=== PATIENT | female | born 1995 | race African-American/Black ===

== ENCOUNTER 2018-05-05 05:14 | Emergency (ER) | payer OTHER ==
[2018-05-05] MEDS ORDERED: NS 0.9% 1000 ML* 1,000 ML IV ONE (05:45)
[2018-05-05] MEDS ORDERED: Ondansetron INJ* 2 MG/ML VIAL IV ONE (05:45)
[2018-05-05 06:19] LABS: ABS Basophils 0 10^3/ul (0-0.2); ABS Eosinophils 0.1 10^3/ul (0-0.6); ABS Lymphocytes 0.7 10^3/ul (1.0-4.8); ABS Monocytes 0.6 10^3/ul (0-0.8); ABS Neutrophils 9.3 10^3/ul (1.5-7.7); ABS Nucleated RBC 0 10^3/ul; Eosinophil % 0.5 %; Hematocrit 39 % (35-47); Hemoglobin 13.5 g/dl (12.0-16.0); Lymphocyte % 6.7 %; Mean Corpuscular HGB Conc 35 g/dl (31-36); Mean Corpuscular Hemoglobin 31 pg (27-31); Mean Corpuscular Volume 90 fL (80-97); Mean Platelet Volume 6.8 fL (7.4-10.4); Nucleated Red Blood Cells % 0; Platelet Count 312 10^3/ul (150-450); Red Blood Count 4.33 10^6/ul (4.00-5.40); Red Cell Distribution Width 12 % (10.5-15); White Blood Count 10.7 10^3/ul (3.5-10.8)
[2018-05-05 06:31] LABS: Albumin 4.1 g/dL (3.2-5.2); Albumin/Globulin Ratio 1.5 (1-3); BUN/Creatinine Ratio 18.5 (8-20); EGFR Non-African American 87.6 (>60); Globulin 2.7 g/dL (2-4); Magnesium 1.7 mg/dL (1.9-2.7); Potassium 3.9 mmol/L (3.5-5.0); Total Bilirubin 0.7 mg/dL (0.2-1.0); Total Protein 6.8 g/dL (6.4-8.9)
[2018-05-05 06:51] LABS: Urine Appearance Cloudy; Urine Bacteria Absent (Absent); Urine Bilirubin Negative (Negative); Urine Blood Negative (Negative); Urine Color Amber; Urine Glucose Negative (Negative); Urine Ketones Negative (Negative); Urine Nitrite Negative (Negative); Urine Protein Negative (Negative); Urine Red Blood Cell Trace(0-2/hpf) (Absent); Urine Specific Gravity 1.029 (1.010-1.030); Urine Urobilinogen Negative (Negative); Urine White Blood Cell 2+(11-20/hpf) (Absent)
[2018-05-05] MEDS ORDERED: Acetaminophen TAB* 325 MG PO ONE (07:39)
--- NOTE | 2018-05-05 08:20 | ED ---
Back Pain - HPI Summary HPI Summary: Patient is a 22-year-old 9 week female presenting to the ED with bilateral upper and lower back pain diffusely throughout without trauma or other injury. Patient denies abdominal pain or vaginal bleeding or discharge. Also is endorsing some pain to the left shoulder with intermittent numbness and tingling radiating down to the hand which has been present times several weeks. She is also complaining of diffuse shakiness over the past several years. Also endorsing 2 day history of nausea, vomiting, diarrhea which she states is not her normal morning sickness nausea, vomiting. She denies any fevers, sweats , chills. She states she continues to eat and drink well. She has not had an ultrasound for this . Denies any bladder or bowel dysfunction. Denies any numbness or tingling to the bilateral lower extremities. Continues to be able to ambulate well. - History of Current Complaint Chief Complaint: EDAbdPain Stated Complaint: VOMITING Time Seen by Provider: 05/05/18 05:29 Hx Obtained From: Patient Onset/Duration: Sudden Onset Onset/Duration: Started Hours Ago Timing: Constant Back Pain Location: Is Diffuse - diffuse over back Pain Intensity: 10 Pain Scale Used: 0-10 Numeric Character: Aching Aggravating Symptom(s): Movement, Lifting, Bending Alleviating Symptom(s): Rest, Position, Heat Associated Signs And Symptoms: Negative: Swelling, Redness, Bruising, Weakness, Numbness, Abdominal Pain, Bladder Incontinence, Bowel Incontinence - Risk Factors AAA Risk Factors: Negative TAD Risk Factors: Negative Cauda Equina Risk Factors: Negative Epidural Abscess Risk Factors: Negative - Allergies/Home Medications Allergies/Adverse Reactions: Allergies Allergy/AdvReac Type Severity Reaction Status Date / Time No Known Allergies Allergy Verified 05/05/18 05:20 PMH/Surg Hx/FS Hx/Imm Hx Previously Healthy: Yes - Immunization History Hx Pertussis Vaccination: No Immunizations Up to Date: Yes Infectious Disease History: No Infectious Disease History: Denies: Traveled Outside the [place] in Last 30 Days - Social History Occupation: Unemployed Lives: Alone Alcohol Use: None Hx Substance Use: No Substance Use Type: Reports: None Hx Tobacco Use: No Smoking Status (MU): Never Smoked Tobacco Review of Systems Constitutional: Negative Negative: Fever, Chills, Fatigue, Skin Diaphoresis Negative: Palpitations, Chest Pain Negative: Shortness Of Breath, Cough Genitourinary: Negative Positive: no symptoms reported, see HPI Positive: Arthralgia - back pain. Negative: Myalgia Skin: Negative Neurological: Negative All Other Systems Reviewed And Are Negative: Yes Physical Exam Triage Information Reviewed: Yes Vital Signs On Initial Exam: Initial Vitals Temp Pulse Resp BP Pulse Ox 98.1 F 104 16 131/86 97 05/05/18 05:19 05/05/18 05:19 05/05/18 05:19 05/05/18 05:19 05/05/18 05:19 Vital Signs Reviewed: Yes Appearance: Positive: Well-Appearing, Well-Nourished Skin: Positive: Skin Color Reflects Adequate Perfusion Head/Face: Positive: Normal Head/Face Inspection Eyes: Positive: EOMI, AUGUSTINA, Conjunctiva Clear Neck: Positive: Supple, No Lymphadenopathy Respiratory/Lung Sounds: Positive: Clear to Auscultation, Breath Sounds Present Cardiovascular: Positive: RRR, Pulses are Symmetrical in both Upper and Lower Extremities Abdomen Description: Positive: Nontender, Soft Musculoskeletal: Positive: Pain @ - diffusely throughout back - no step off Neurological: Positive: Sensory/Motor Intact, Speech Normal Psychiatric: Positive: Affect/Mood Appropriate AVPU Assessment: Alert Diagnostics - Vital Signs Vital Signs Temp Pulse Resp BP Pulse Ox 05/05/18 07:51 86 110/64 97 05/05/18 07:21 85 105/56 98 05/05/18 07:00 79 99 05/05/18 06:51 85 98/75 96 05/05/18 06:22 97 96 05/05/18 06:21 95 117/74 96 05/05/18 05:19 98.1 F 104 16 131/86 97 - Laboratory Lab Results: Lab Results 05/05/18 05/05/18 05/05/18 Range/Units 05:45 05:45 06:31 WBC 10.7 (3.5-10.8) 10^3/ul RBC 4.33 (4.00-5.40) 10^6/ul Hgb 13.5 (12.0-16.0) g/dl Hct 39 (35-47) % MCV 90 (80-97) fL MCH 31 (27-31) pg MCHC 35 (31-36) g/dl RDW 12 (10.5-15) % Plt Count 312 (150-450) 10^3/ul MPV 6.8 L (7.4-10.4) fL Neut % (Auto) 87.2 % Lymph % (Auto) 6.7 % [place] % (Auto) 5.4 % Eos % (Auto) 0.5 % Baso % (Auto) 0.2 % Absolute Neuts (auto) 9.3 H (1.5-7.7) 10^3/ul Absolute Lymphs (auto) 0.7 L (1.0-4.8) 10^3/ul Absolute Monos (auto) 0.6 (0-0.8) 10^3/ul Absolute Eos (auto) 0.1 (0-0.6) 10^3/ul Absolute Basos (auto) 0 (0-0.2) 10^3/ul Absolute Nucleated RBC 0 10^3/ul Nucleated RBC % 0 Sodium 134 L (135-145) mmol/L Potassium 3.9 (3.5-5.0) mmol/L Chloride 103 (101-111) mmol/L Carbon Dioxide 21 L (22-32) mmol/L Anion Gap 10 (2-11) mmol/L BUN 15 (6-24) mg/dL Creatinine 0.81 (0.51-0.95) mg/dL Est GFR ( Amer) 106.0 (>60) Est GFR (Non-Af Amer) 87.6 (>60) BUN/Creatinine Ratio 18.5 (8-20) Glucose 111 H (70-100) mg/dL Calcium 9.0 (8.6-10.3) mg/dL Magnesium 1.7 L (1.9-2.7) mg/dL Total Bilirubin 0.70 (0.2-1.0) mg/dL AST 26 (13-39) U/L ALT 43 (7-52) U/L Alkaline Phosphatase 50 (34-104) U/L Troponin I 0.00 (<0.04) ng/mL Total Protein 6.8 (6.4-8.9) g/dL Albumin 4.1 (3.2-5.2) g/dL Globulin 2.7 (2-4) g/dL Albumin/Globulin Ratio 1.5 (1-3) Beta HCG, Quant 982478.00 mIU/mL Urine Color Jeanette Urine Appearance Cloudy Urine pH 5.0 (5-9) Ur Specific [place] 1.029 (1.010-1.030) Urine Protein Negative (Negative) Urine Ketones Negative (Negative) Urine Blood Negative (Negative) Urine Nitrate Negative (Negative) Urine Bilirubin Negative (Negative) Urine Urobilinogen Negative (Negative) Ur Leukocyte Esterase 1+ A (Negative) Urine WBC (Auto) 2+(11-20/hpf) A (Absent) Urine RBC (Auto) Trace(0-2/hpf) (Absent) Ur Squamous Epith Cells Present A (Absent) Urine Bacteria Absent (Absent) Urine Glucose Negative (Negative) Urine Ascorbic Acid * A (Negative) Result Diagrams: 05/05/18 05:45 05/05/18 05:45 Lab Statement: Any lab studies that have been ordered have been reviewed, and results considered in the medical decision making process. Back Pain Course/Dx - Course Course Of Treatment: During the course treatment, the patient is evaluated for multiple complaints. She endorses shakiness over the past several years, which is intermittent and not worse or better during a specific time a day. I've advised she follow up with her PCP regarding this. I have addressed her complaint of nausea, vomiting, diarrhea and left shoulder pain which radiates to the hand with intermittent numbness and tingling over the past few weeks. Magnesium is WNL. Other labs obtained and are all WNL including an hCG which is consistent with a 9 week . She endorses diffuse back pain which is also common in , no lesions, ecchymosis or signs of trauma. No pain directly to the spine and no step-off noted on physical exam. Patient is given Tylenol and moist heat pads. She is also given Zofran and 1 L fluids with good relief. She will follow-up with her COIN BOX INSPECTOR as well as her PCP. As patient is not complaining of abdominal pain, vaginal bleeding or vaginal discharge, ultrasound is not obtained at this time. Reglan prescribed. Patient is feeling much improved and would like to be discharged home. She is ambulating well. Unable to give stool sample. UA obtained with 1+ leukocytes. Will not treat at this time. - Diagnoses Differential Diagnosis/HQI/PQRI: Positive: Herniated Disc, Strain, Sprain Provider Diagnoses: Back pain Discharge - Sign-Out/Discharge Documenting (check all that apply): Patient Departure - Discharge Plan Condition: Stable Disposition: HOME Prescriptions: Metoclopramide TAB* [Reglan TAB*] 10 mg PO Q6H #15 tab MDD 4 Patient Education Materials: Nausea and Vomiting in (ED), Back Pain ( ED) Referrals: Julieta Doty MD [Primary Care Provider] - Additional Instructions: Moist heat to the back Tylenol 650mg three times daily Reglan up to four times daily as needed for nausea - Billing Disposition and Condition Condition: STABLE Disposition: Home
[2018-05-05 10:30] VITALS: BP 99/55
== END 2018-05-05 10:30 | disposition home or self-care (01) ==
LOC: ED 05:14
DX: O26.891 Other specified pregnancy related conditions, first trimester (principal); M54.6 Pain in thoracic spine; M54.5 Low back pain; Z3A.09 9 weeks gestation of pregnancy
CPT/HCPCS: 36415; 80053; 81003; 81015; 83735; 84484; 84702; 85025; 87086; 96374; 99283; A9270-GY; J2405

== ENCOUNTER → 2018-08-17 15:29 | Emergency (ER) | payer OTHER ==
[~2018-08-17 15:29] MED LIST: Amoxicillin PO (*) 500 MG CAP PO ONE
[2018-08-17 18:44] LABS: Hematocrit 35 % (33-41); Hemoglobin 12.1 g/dL (12.0-16.0); Mean Corpuscular HGB Conc 34 g/dL (31-36); Mean Corpuscular Hemoglobin 31 pg (27-31); Mean Corpuscular Volume 90 fL (80-97); Mean Platelet Volume 6.7 fL (7.4-10.4); Platelet Count 315 10^3/uL (150-450); Red Blood Count 3.92 10^6 /uL (3.70-4.87); Red Cell Distribution Width 13 % (10.5-15); White Blood Count 9.8 10^3/uL (3.5-10.8)
[2018-08-17 19:02] LABS: BUN/Creatinine Ratio 10.4 (8-20); Calcium 9.3 mg/dL (8.6-10.3); EGFR African American 130.8 (>60); EGFR Non-African American 108.1 (>60); Potassium 3.8 mmol/L (3.5-5.0)
--- NOTE | 2018-08-17 20:27 | ED ---
Abdominal Pain/Female - HPI Summary HPI Summary: Pt is a 23 y/o female who presents to the ED c/o abdominal pain. 2 days ago she began having suprapubic abdominal pressure and cramping. Pt denies any dysuria, hematuria, vaginal bleeding, or vaginal discharge. Her pain is currently rated a 9/10 in severity. She is currently 24 weeks , A1. All prior births have been vaginal without complications. Pt was seen today by her client support professional but did not discuss her abdominal pain. She feels the baby moving. - History of Current Complaint Chief Complaint: EDAbdPain Stated Complaint: VAGINAL PAIN PER PT Time Seen by Provider: 08/17/18 19:49 Hx Obtained From: Patient Onset/Duration: Gradual Onset, Lasting Days - 2, Still Present Timing: Constant Severity Currently: Severe Pain Intensity: 9 Pain Scale Used: 0-10 Numeric Location: Suprapubic Character: Cramping, Other: - pressure Associated Signs and Symptoms: Negative: Urinary Symptoms, Vaginal Bleeding, Vaginal Discharge Allergies/Adverse Reactions: Allergies Allergy/AdvReac Type Severity Reaction Status Date / Time No Known Allergies Allergy Verified 05/05/18 05:20 Home Medications: Home Medications Vitamin TAB* 1 tab PO DAILY 08/17/18 [History Confirmed 08/17/18] raNITIdine HCl [Zantac 150 Maximum Streng] 150 mg PO BID 08/17/18 [History Confirmed 08/17/18] PMH/Surg Hx/FS Hx/Imm Hx Previously Healthy: Yes Endocrine/Hematology History: Denies: Hx Diabetes Cardiovascular History: Denies: Hx Hypertension Infectious Disease History: No Infectious Disease History: Denies: Traveled Outside the [place] in Last 30 Days - Family History Known Family History: Negative: Blood Disorder - Social History Alcohol Use: None Hx Substance Use: No Substance Use Type: Reports: None Hx Tobacco Use: No Smoking Status (MU): Never Smoked Tobacco Review of Systems Positive: Abdominal Pain Negative: dysuria, hematuria, other - vaginal bleeding or discharge All Other Systems Reviewed And Are Negative: Yes Physical Exam - Summary Physical Exam Summary: VITAL SIGNS: Reviewed. GENERAL: Patient is a well-developed and nourished FEMALE who is lying comfortable in the stretcher. Patient is not in any acute respiratory distress. HEAD AND FACE: No signs of trauma. No ecchymosis, hematomas or skull depressions. No sinus tenderness. EYES: PERRLA, EOMI x 2, No injected conjunctiva, no nystagmus. EARS: Hearing grossly intact. Ear canals and tympanic membranes are within normal limits. MOUTH: Oropharynx within normal limits. NECK: Supple, trachea is midline, no adenopathy, no JVD, no carotid bruit, no c- spine tenderness, neck with full ROM. CHEST: Symmetric, no tenderness at palpation LUNGS: Clear to auscultation bilaterally. No wheezing or crackles. CVS: Regular rate and rhythm, S1 and S2 present, no murmurs or gallops appreciated. ABDOMEN: Soft. Mild suprapubic tenderness. No signs of distention. No rebound no guarding, and no masses palpated. Bowel sounds are normal. EXTREMITIES: FROM in all major joints, no edema, no cyanosis or clubbing. NEURO: Alert and oriented x 3. No acute neurological deficits. Speech is normal and follows commands. SKIN: Dry and warm Triage Information Reviewed: Yes Vital Signs On Initial Exam: Initial Vitals Temp Pulse Resp BP Pulse Ox 98.2 F 92 16 128/72 97 08/17/18 16:01 08/17/18 16:01 08/17/18 16:01 08/17/18 16:01 08/17/18 16:01 Vital Signs Reviewed: Yes Diagnostics - Vital Signs Vital Signs Temp Pulse Resp BP Pulse Ox 08/17/18 19:28 97.4 F 95 16 107/91 98 08/17/18 17:00 98.2 F 86 16 125/69 98 08/17/18 16:01 98.2 F 92 16 128/72 97 - Laboratory Lab Results: Lab Results 08/17/18 08/17/18 Range/Units 18:34 18:34 WBC 9.8 (3.5-10.8) 10^3/uL RBC 3.92 (3.70-4.87) 10^6 /uL Hgb 12.1 (12.0-16.0) g/dL Hct 35 (33-41) % MCV 90 (80-97) fL MCH 31 (27-31) pg MCHC 34 (31-36) g/dL RDW 13 (10.5-15) % Plt Count 315 (150-450) 10^3/uL MPV 6.7 L (7.4-10.4) fL Sodium 136 (135-145) mmol/L Potassium 3.8 (3.5-5.0) mmol/L Chloride 105 (101-111) mmol/L Carbon Dioxide 24 (22-32) mmol/L Anion Gap 7 (2-11) mmol/L BUN 7 (6-24) mg/dL Creatinine 0.67 (0.51-0.95) mg/dL Est GFR ( Amer) 130.8 (>60) Est GFR (Non-Af Amer) 108.1 (>60) BUN/Creatinine Ratio 10.4 (8-20) Glucose 86 (70-100) mg/dL Calcium 9.3 (8.6-10.3) mg/dL Result Diagrams: 08/17/18 18:34 08/17/18 18:34 Lab Statement: Any lab studies that have been ordered have been reviewed, and results considered in the medical decision making process. - Ultrasound No standard instances Ultrasound Interpretation Completed By: Radiologist Summary of Ultrasound Findings: US: Normal intrauterine with estimated gestational age of 23 weeks and 4 days. ED physician reviewed radiology report. Abdominal Pain Fem Course/Dx - Course Course Of Treatment: Pt is a 23 y/o female who presents to the ED c/o suprapubic abdominal pain. She is currently 24 weeks . A physical exam revealed mild suprapubic tenderness. A US revealed normal intrauterine with estimated gestational age of 23 weeks and 4 days. Bloodwork without abnormalities. A UA revealed positive leukocyte esterase, RBC, and squamous epithelial cells. In the course she was given Amoxicillin. She will be discharged with a final dx of UTI, and a prescription for Amoxicillin. Pt is agreeable with this plan. - Diagnoses Provider Diagnoses: UTI (urinary tract infection) Discharge - Sign-Out/Discharge Documenting (check all that apply): Patient Departure - Discharge Patient Received Moderate/Deep Sedation with Procedure: No - Discharge Plan Condition: Stable Disposition: HOME Prescriptions: Amoxicillin PO (*) [Amoxicillin 500 MG CAP*] 500 mg PO Q6H #30 cap Patient Education Materials: Urinary Tract Infection in (ED) Referrals: Julieta Doty MD [Primary Care Provider] - (2-3 days) Additional Instructions: PLEASE RETURN TO THE ED IMMEDIATELY FOR WORSENING OR CONCERNING SYMPTOMS. - Attestation Statements Document Initiated by Scribe: Yes Documenting Scribe: Nu Kohler Provider For Whom Scribe is Documenting (Include Credential): Chery Fonseca MD Scribe Attestation: INu, scribed for Chery Fonseca MD on 08/17/18 at 2056. Status of Scribe Document: Ready
[2018-08-17 20:48] LABS: Urine Appearance Cloudy; Urine Bacteria Absent (Absent); Urine Bilirubin Negative (Negative); Urine Blood Negative (Negative); Urine Color Yellow; Urine Glucose Negative (Negative); Urine Ketones Negative (Negative); Urine Nitrite Negative (Negative); Urine Protein Negative (Negative); Urine Red Blood Cell 2+(6-10/hpf) (Absent); Urine Specific Gravity 1.012 (1.010-1.030); Urine Squamous Epithelial Cell Present (Absent); Urine Urobilinogen Negative (Negative); Urine White Blood Cell Trace(0-5/hpf) (Absent)
[2018-08-17 21:06] VITALS: BP 107/79
== END | disposition home or self-care (01) ==
LOC: ED 15:29
DX: N39.0 Urinary tract infection, site not specified (principal)
CPT/HCPCS: 36415; 76815; 80048; 81003; 81015; 85027; 87086; 99283; A9270-GY

== ENCOUNTER 2018-10-13 19:45 | Emergency (ER) | payer OTHER ==
--- NOTE | 2018-10-13 21:35 | ED ---
GI/ HPI - HPI Summary HPI Summary: A 23 y/o F presents to ED c/o rectal bleeding with bowel movement today at 1830. Patient is 32-weeks , due Dec 07, and has been receiving pre-jemma care and ultrasounds with Dr. Chen, OB. This is her second . Her first was without complication. She has had contraction-like pain for the past 4 days, and her OB is aware. She also c/o stomach aches. Denies bowel changes , rectal pain. She is feeling the baby move. PMHx: gestational DM. Denies PMHx: Crohns, colitis. Patient is afebrile in ED. - History of Current Complaint Chief Complaint: EDAbdPain Time Seen by Provider: 10/13/18 21:26 Stated Complaint: BLOOD IN STOOL PER PT Hx Obtained From: Patient Onset/Duration: Started Hours Ago - approx 1830, Resolved Timing: Intermittent Current Severity: Severe Pain Intensity: 10 - out of 10 Associated Signs and Symptoms: Positive: External Hemorrhoid, Abdominal Pain. Negative: Rectal Pain, Constipation, Diarrhea Additional Signs & Symptoms: Positive: - Allergy/Home Medications Allergies/Adverse Reactions: Allergies Allergy/AdvReac Type Severity Reaction Status Date / Time No Known Allergies Allergy Verified 10/13/18 19:52 PMH/Surg Hx/FS Hx/Imm Hx Previously Healthy: Yes Endocrine/Hematology History: Denies: Hx Diabetes Cardiovascular History: Denies: Hx Hypertension GI History: Reports: Other GI Disorders - neg: colitis Denies: Hx Crohn's Disease Infectious Disease History: No Infectious Disease History: Denies: Traveled Outside the [place] in Last 30 Days - Family History Known Family History: Negative: Blood Disorder - Social History Occupation: Employed Part-time Lives: With Family Alcohol Use: None Hx Substance Use: No Substance Use Type: Reports: None Hx Tobacco Use: No Smoking Status (MU): Never Smoked Tobacco Have You Smoked in the Last Year: No Review of Systems Negative: Fever Positive: Abdominal Pain, Other - pos: rectal bleeding, gravid. neg: rectal pain. Negative: Diarrhea All Other Systems Reviewed And Are Negative: Yes Physical Exam - Summary Physical Exam Summary: Appearance: Well appearing, no pain distress, obese Skin: warm, dry, reflects adequate perfusion Head/face: normal Eyes: EOMI, AUGUSTINA ENT: mucous membranes moist Neck: supple, non-tender Respiratory: CTA, breath sounds present Cardiovascular: RRR, pulses symmetrical Abdomen: non-tender, soft, fundus is 7 cm below umbilicus Bowel Sounds: present Musculoskeletal: normal, strength/ROM intact Neuro: normal, sensory motor intact, A&Ox3 Lenore RN, present as coremaker experimental: : Bedside US shows 33 weeks by BPD. Vertex presentation. Placenta is low- lying. Rectal: inflamed hemorrhoid, no active bleeding, no gross blood, stool present. Digital exam: loose brown stool. Triage Information Reviewed: Yes Vital Signs On Initial Exam: Initial Vitals Temp Pulse Resp BP Pulse Ox 97.7 F 108 16 109/73 98 10/13/18 19:45 10/13/18 19:45 10/13/18 19:45 10/13/18 19:45 10/13/18 19:45 Vital Signs Reviewed: Yes Diagnostics - Vital Signs Vital Signs Temp Pulse Resp BP Pulse Ox 10/13/18 19:45 97.7 F 108 16 109/73 98 - Laboratory Lab Statement: Any lab studies that have been ordered have been reviewed, and results considered in the medical decision making process. GIGU Course/Dx - Course Course Of Treatment: Nurse's notes reviewed. Bedside ultrasound shows active fetus with heart tones 130s. Vertex presentation. The placenta is noted to be low as well. Patient is feeling the baby move and has no pain now. She was seen today by SNOW MAKER. I discussed the case with SNOW MAKER on-call who wishes to have the patient discharged to follow up in the office. Patient does report pains as what she calls Jose Srinivasan contractions. Her rectal bleeding appears to be from external hemorrhoid. There is no blood on rectal exam. - Diagnoses Differential Diagnoses - Female: Other - False labor, labor, rectal bleeding, hemorrhoids Provider Diagnoses: Abdominal pain during , External hemorrhoids - Physician Notifications Discussed Care Of Patient With: John Williamson - OB Time Discussed With Above Provider: 22:18 Instructed by Provider To: Other - Recommends discharge home and f/u in office. Discharge - Sign-Out/Discharge Documenting (check all that apply): Patient Departure - D/C Patient Received Moderate/Deep Sedation with Procedure: No - Discharge Plan Condition: Stable Disposition: HOME Prescriptions: Hydrocortisone SUPP* [Anusol HC Supp*] 25 mg NH BID PRN #10 supp PRN Reason: hemorrhoidal bleeding Patient Education Materials: Hemorrhoids (ED), Abdominal Pain in (ED) Referrals: Bob Chen MD [Medical Doctor] - Additional Instructions: Use apple juice or take a stool softener as needed for hard stools. Return with abdominal contractions, leaking of fluid, vaginal bleeding, increased abdominal pain, worse or other concerns. Follow-up with your SNOW MAKER on Tuesday. - Billing Disposition and Condition Condition: STABLE Disposition: Home - Attestation Statements Document Initiated by Scribe: Yes Documenting Scribe: Sita Palomo Provider For Whom Mushtaqibdion is Documenting (Include Credential): Dr. Miles Ambrose MD Scribe Attestation: Sita Yo scribed for Dr. Miles Ambrose MD on 10/14/18 at 0107. Scribe Documentation Reviewed: Yes Provider Attestation: The documentation as recorded by the Sita borges accurately reflects the service I personally performed and the decisions made by , Dr. Miles Ambrose MD Status of Scribe Document: Viewed
[2018-10-13 22:37] VITALS: BP 104/59
== END 2018-10-13 22:35 | disposition home or self-care (01) ==
LOC: ED 19:45
DX: R10.9 Unspecified abdominal pain (principal); K64.4 Residual hemorrhoidal skin tags; Z34.93 Encounter for supervision of normal pregnancy, unspecified, third trimester; Z3A.32 32 weeks gestation of pregnancy
CPT/HCPCS: 99283

== ENCOUNTER 2018-11-08 08:30 | Inpatient (IN) | payer OTHER ==
[2018-11-29] MEDS ORDERED: Buffered Lidocaine 1% SYRIN* 1 ML/SYRINGE INTRADERM ONE (16:54)
[2018-11-30] MEDS ORDERED: Buffered Lidocaine 1% SYRIN* 1 ML/SYRINGE INTRADERM ONE (05:53)
[2018-11-30] MEDS ORDERED: ceFOXitin 2 GM IVPREMIX* 2 GM/50 ML BAG IVPB ONE (05:53)
[2018-11-30] MEDS ORDERED: Lactated Ringers 1000 ML Bag* 1,000 ML IV ONE (05:53)
[2018-11-30] MEDS ORDERED: Sodium Citrate/Citric Acid* 15 ML UDC PO ONE (06:00)
[2018-11-30] MEDS ORDERED: Lactated Ringers 1000 ML Bag* 1,000 ML IV SCH ×3 (06:00→10:00)
--- NOTE | 2018-11-30 06:01 | HP ---
General Information - Reason for Visit at 39 weeks with Breech presentation admitted for delivery via Section - General Information Maternal Age: 23 Grav: 3 Para: 1 SAB: 1 IEA: 0 Estimated Due Date: 12/07/18 Determined By: LMP Maternal Blood Type and Rh: A Positive - Results this Serology/RPR Result: Non-Reactive Rubella Result: Immune HBsAg Result: Negative HIV Result: Negative GBS Culture Result: Positive Past Medical History Delivery History: See Records Pertinent Past Medical History: See Records Past Medical History Comment: Fibromyalgia Asthma Obesity BMI 46 Pertinent Past Surgical History: See Records Past Surgical History Comment: None Pertinent Family History: See Records - Antepartal Records Antepartal Records: Reviewed, Complicated by: - Obesity BMI 46, Gestational diabetes A1, Persisitent Breech presentation Review of Systems Constitutional: Comfortable CV Complaint: Yes Respiratory: Shortness of Breath: Yes Gastrointestinal: No Nausea/Vomiting, Normal Bowel Movement Genitourinary: No Dysuria, No Bleeding, No Leaking Fluid Musculoskeletal: No Complaint, No Epigastric Pain Neurological: No Headache, No Visual Changes Movement: Normal Exam Allergies/Adverse Reactions: Allergies No Known Allergies Allergy (Verified 11/28/18 15:37) Temp 98.7 BP 130/80 P 72 RR 20 - Measurements Height: 5 ft 5 in Weight: 301 lb Weight in lbs: 301.043612 Body Mass Index (BMI): 50.1 Pre- Weight: 254 lb Weight Gained This : 47 lbs and 0 ozs - Exam Breast: Breast Exam Deferred CVA: No CVA Tenderness Extremities: No Edema Heart: Normal Rhythm/Heart Sounds HEENT: No Significant Findings Lungs: Clear Bilaterally Rectal: Rectal Exam Deferred Reflexes: DTR 2+ Thyroid: No Thyromegaly - Abdominal Exam Abdomen Exam: Non-Tender, Fundal Height Consistent with Dates Targeted Exam Findings See L&D Outpatient Visit Provider Note for Findings: N/A Estimated Weight: 3700 gms Cervical Exam: Closed Effacement: Thick Station: -1 Presenting Part: Breech Membrane Status: Intact Bleeding/Discharge: None EFM Findings - External Monitor Findings Baseline Heart Rate: 150 - doppler only Contractions: None Assessment/Plan - Assessment at Term with Breech presentation, BMI 46, GDMA1 - Obstetrical Risk Factors Obstetrical Risk Factors: Obesity, Gestational Diabetes - Diet controlled, Breech - Plan Plan: IV Hydration, Antibiotic Prophylaxis, C/S Delivery - Date/Time of Admission Date of Admission: 11/30/18 Time of Admission: 07:00
[2018-11-30 07:40] LABS: Urine Benzodiazepine Screen None Detected (None Detect); Urine Opiates Screen None Detected (None Detect)
[2018-11-30] MEDS ORDERED: Morphine PF AMP (0.5MG/ML)* 5 MG/10 ML AMP ONE (07:58)
[2018-11-30] MEDS ORDERED: Lidocaine 0.5%* 50 ML SDV ONE (07:59)
[2018-11-30] MEDS ORDERED: OXYTOCIN* 10 UNITS/ML 1 ML VIAL ONE (08:11)
[2018-11-30] MEDS ORDERED: Ondansetron INJ* 2 MG/ML VIAL ONE (08:11)
[2018-11-30] MEDS ORDERED: Phenylephrine 40 MCG/ML SYRINGE ONE (08:11)
[2018-11-30] MEDS ORDERED: fentaNYL* 50 MCG/ML 2 ML VIAL (100 MCG VIAL) IV PRN (09:14)
[2018-11-30] MEDS ORDERED: Naloxone* 0.4 MG/ML 1 ML VIAL IV PRN ×2 (09:14→09:43)
[2018-11-30] MEDS ORDERED: Ondansetron INJ* 2 MG/ML VIAL IV PRN (09:43)
[2018-11-30] MEDS ORDERED: Naloxone* 2 MG in NS 0.9% 250 ML* 250 ML IV PRN (09:43)
[2018-11-30] MEDS ORDERED: oxyCODONE/Acetamin 5/325 MG* TAB PO PRN ×2 (09:43→09:48)
[2018-11-30] MEDS ORDERED: DiMENhydriNATE IV* 50 MG/ML VIAL IV PUSH PRN (09:43)
[2018-11-30] MEDS ORDERED: Nalbuphine* 10 MG/ML 1 ML VIAL IV PRN (09:43)
[2018-11-30] MEDS ORDERED: Glycerin ADULT SUPP PR PRN (09:48)
[2018-11-30] MEDS ORDERED: Witch Hazel PAD* JAR TOPICAL PRN (09:48)
[2018-11-30] MEDS ORDERED: Dibucaine 1% 28.35 GM TUBE PR PRN (09:48)
[2018-11-30] MEDS ORDERED: Zolpidem TAB* 5 MG PO PRN (09:48)
[2018-11-30] MEDS ORDERED: Tetan/Diph/Pertus SYR(Tdap)* 0.5 ML SYR(BOOSTRIX) use SYR IM ONE (09:48)
[2018-11-30] MEDS ORDERED: Nalbuphine* 10 MG/ML 1 ML VIAL ONE (10:18)
[2018-11-30] MEDS ORDERED: Ketorolac INJ* 30 MG/ML 1 ML VIAL ONE (11:05)
[2018-11-30] MEDS: Ketorolac INJ* 30 MG/ML 1 ML VIAL IV PRN ×2 (11:09→17:20)
[2018-11-30] MEDS: Simethicone TAB* 80 MG TAB.CHEW PO SCH ×3 (12:20→20:14)
[2018-11-30] MEDS ORDERED: oxyCODONE/Acetamin 5/325 MG* TAB ONE (13:38)
[2018-11-30] MEDS: Docusate CAP* 100 MG PO SCH ×2 (13:40→20:14)
--- NOTE | 2018-11-30 14:00 | OP ---
CC: Dr. Bhumi Alonso, [facility] * DATE OF OPERATION: 11/30/18 - ROOM #115 DATE OF : 89 SURGEON: Bob Chen MD. MICROSTRATEGY REPORTS DEVELOPER SURGEON: Dr. Bhumi Alonso. ANESTHESIA: Spinal. PRE-OP DIAGNOSES: at 39 weeks with breech presentation, gestational diabetes and obesity, BMI of 46. POST-OP DIAGNOSES: at 39 weeks with breech presentation, gestational diabetes and obesity, BMI of 46. OPERATIVE PROCEDURE: Primary low transverse section. ESTIMATED BLOOD LOSS: 600 cc. SPECIMEN SENT TO PATHOLOGY: Cord blood. FLUIDS: She received 3 L of IV crystalloid fluid. URINE OUTPUT: Her urine output was clear. FINDINGS: Upon delivery was that of a viable male infant in breech presentation with nuchal cord x3 over clear amniotic fluid with a weight of 7 pounds 15 ounces and Apgars of 8 and 9. The uterus, adnexa, bowel, and bladder were all within normal limits. The placenta was grossly intact with a three- vessel cord noted and there were no complications. DESCRIPTION OF PROCEDURE: The patient was taken to the operating room, where she was identified. She was placed on the operating table, where a spinal anesthetic was obtained without difficulty. She was then placed in the supine position with a leftward tilt, prepped and draped in normal sterile fashion. A Pfannenstiel skin incision was made with a knife and carried through to the underlying layer of fascia. The fascia was nicked in the midline and extended laterally with curved Singh scissors. The fascia was then grasped superiorly and inferiorly with Alexandro clamps and dissected off sharply from the recuts muscle. The rectus muscle was in the midline bluntly. The peritoneum was identified, grasped with pickups, and entered sharply with Metzenbaum scissors and the peritoneum was then extended superiorly and inferiorly sharply. Through this incision, a self- retaining retractor was introduced. A bladder flap was then created using Metzenbaum scissors and a low transverse uterine incision was made with a knife and extended laterally with bandage scissors. The infant's feet were then grasped and delivered through a breech extraction. Nuchal cord x3 was reduced immediately after delivery of the head. The cord was clamped and cut and the was handed off to awaiting service planner. Cord bloods were obtained. The placenta was removed manually. The uterus was then exteriorized and cleared of all clots and debris using moist laparotomy sponges. The uterine incision was then closed using 0- Polysorb suture in a running locked fashion with a second imbricating layer of 0- Polysorb suture with good hemostasis noted. The uterus was then returned to the patient's abdomen. The self-retaining retractor was then removed. The gutters were then cleared of all clot and debris using moist laparotomy sponges. All the sponges were removed from the patient's abdomen. The peritoneum was then closed using 3-0 Polysorb suture in a running fashion. The fascia was closed using 0-Polysorb suture in a running fashion and the Kim's layer was closed with 3-0 Vicryl sutures, interrupted stitches. The skin was closed with a 4-0 Monocryl subcuticular stitch. The patient tolerated the procedure well. Sponge, lap and needle counts were correct x2. She was then transferred to the recovery room area in stable condition. [id number]/[facility] #: [id number] AUGIE
[2018-11-30] MEDS ORDERED: NS 0.9% 500 ML* 500 ML IV ONE (21:39)
[2018-12-01] MEDS ORDERED: Acetaminophen TAB* 325 MG PO PRN (00:29)
[2018-12-01] MEDS ORDERED: oxyCODONE/Acetamin 5/325 MG* TAB PO PRN (00:29)
[2018-12-01] MEDS: Ketorolac INJ* 30 MG/ML 1 ML VIAL IV PRN (02:42)
[2018-12-01] MEDS ORDERED: Ferrous Gluconate TAB* 324 MG TAB PO SCH (09:00)
[2018-12-01] MEDS: Docusate CAP* 100 MG PO SCH ×3 (09:03→21:39)
[2018-12-01] MEDS: Simethicone TAB* 80 MG TAB.CHEW PO SCH ×4 (09:03→21:39)
[2018-12-01] MEDS: oxyCODONE/Acetamin 5/325 MG* TAB PO PRN ×2 (09:04→21:47)
[2018-12-01] MEDS: Ibuprofen TAB* 600 MG PO PRN ×2 (14:43→21:47)
--- NOTE | 2018-12-01 16:42 | PTEDU ---
Patient Name: JOEL NASCIMENTO JOEL NASCIMENTO selected video: Never Ever Shake a Baby to view on 12/01/2018 at 4:42:05 PM from [place] [id number]
[2018-12-01 18:07] LABS: ABS Basophils 0.1 10^3/ul (0-0.2); ABS Eosinophils 0.2 10^3/ul (0-0.6); ABS Lymphocytes 2.2 10^3/ul (1.0-4.8); ABS Monocytes 0.7 10^3/ul (0-0.8); ABS Neutrophils 7.5 10^3/ul (1.5-7.7); Eosinophil % 1.7 %; Hematocrit 35 % (35-47); Hemoglobin 11.7 g/dL (12.0-16.0); Lymphocyte % 20.2 %; Mean Corpuscular HGB Conc 33 g/dL (31-36); Mean Corpuscular Hemoglobin 30 pg (27-31); Mean Corpuscular Volume 91 fL (80-97); Mean Platelet Volume 6.9 fL (7.4-10.4); Nucleated Red Blood Cells % 0.1; Platelet Count 296 10^3/uL (150-450); Red Blood Count 3.89 10^6 /uL (3.70-4.87); Red Cell Distribution Width 14 % (10-15); White Blood Count 10.6 10^3/uL (3.5-10.8)
[2018-12-02] MEDS: oxyCODONE/Acetamin 5/325 MG* TAB PO PRN ×5 (05:12→21:51)
[2018-12-02] MEDS: Ibuprofen TAB* 600 MG PO PRN ×3 (05:13→17:43)
[2018-12-02] MEDS: Docusate CAP* 100 MG PO SCH ×3 (09:06→21:51)
[2018-12-02] MEDS: Simethicone TAB* 80 MG TAB.CHEW PO SCH ×4 (09:06→21:51)
[2018-12-03] MEDS: Ibuprofen TAB* 600 MG PO PRN ×3 (00:03→15:30)
[2018-12-03] MEDS: oxyCODONE/Acetamin 5/325 MG* TAB PO PRN ×3 (02:04→15:29)
[2018-12-03] MEDS: Docusate CAP* 100 MG PO SCH ×2 (09:47→15:29)
[2018-12-03] MEDS: Simethicone TAB* 80 MG TAB.CHEW PO SCH ×2 (09:48→15:30)
[2018-12-03 11:09] VITALS: BP 106/61
== END 2018-12-03 19:25 | disposition home or self-care (01) | DRG 540 ==
LOC: MCHNUR 11-30 06:10 → MCHOB 11-30 06:15
PROVIDERS: ADMIT Obstetrics & Gynecology; ATTEND Obstetrics & Gynecology
PROC: 10D00Z1 Extraction of Products of Conception, Low, Open Approach (ICD-10-PCS; principal; 2018-11-30 07:45)
DX: O32.1XX0 Maternal care for breech presentation, not applicable or unspecified (principal); O99.214 Obesity complicating childbirth; O24.420 Gestational diabetes mellitus in childbirth, diet controlled; O99.824 Streptococcus B carrier state complicating childbirth; O69.81X0 Labor and delivery complicated by cord around neck, without compression, not applicable or unspecified; J45.909 Unspecified asthma, uncomplicated; O99.52 Diseases of the respiratory system complicating childbirth; Z3A.39 39 weeks gestation of pregnancy; Z37.0 Single live birth
CPT/HCPCS: 36415; 80307; 85025; 90715; A9270-GY; J0694; J1885; J2300; J2405; J2590

== ENCOUNTER 2018-11-26 01:36 | Emergency (ER) | payer OTHER ==
--- NOTE | 2018-11-26 03:57 | UC ---
- HPI Summary HPI Summary: Patient is a 23 y/o F who is 38 weeks who presents to ED with complaints of bilateral breast pain. Pain is characterized as a burning sensation. Sx onset at 27 weeks. However, pain was minimal at the time and the patient was able to alleviate Sx by using a warm cloth. Pain progressively worsened. She denies fever and discharge. Dr. Chen is OBGYN. Brigitte is . On triage, pain is rated 10/10, nothing is noted to aggravate/alleviate Sx. Home medications and allergies are reviewed. - History of Current Complaint Hx Obtained From: Patient Breast Chief Complaint: Pain, Breast, Right Onset/Duration: Started Weeks Ago, Still Present, Worse Since Timing: Constant, Lasting Weeks Breast Pain Aggravating Factors: Nothing Breast Pain Alleviating Factors: Other: - warm cloth Breast Associated Signs/Symptoms: Negative - Allergy/Home Medications Allergies/Adverse Reactions: Allergies Allergy/AdvReac Type Severity Reaction Status Date / Time No Known Allergies Allergy Verified 11/26/18 01:57 Home Medications: Home Medications raNITIdine HCl [Zantac] 150 mg PO DAILY 11/26/18 [History Confirmed 11/26/18] PMH/Surg Hx/FS Hx/Imm Hx Endocrine History: Diabetes - gestational GI/ History: Other - UTI - Family History Known Family History: Negative: Blood Disorder - Social History Alcohol Use: None Substance Use Type: None Smoking Status (MU): Never Smoked Tobacco Have You Smoked in the Last Year: No Review of Systems All Other Systems Reviewed And Are Negative: Yes Constitutional: Negative: Fever Musculoskeletal: Positive: Other: - positive - bilateral breast pain, no discharge Physical Exam - Summary Physical Exam Summary: VITAL SIGNS: Reviewed. GENERAL: Patient is a well-developed and nourished female who is lying comfortable in the stretcher. Patient is not in any acute respiratory distress. HEAD AND FACE: No signs of trauma. No ecchymosis, hematomas or skull depressions. No sinus tenderness. EYES: PERRLA, EOMI x 2, No injected conjunctiva, no nystagmus. EARS: Hearing grossly intact. Ear canals and tympanic membranes are within normal limits. MOUTH: Oropharynx within normal limits. NECK: Supple, trachea is midline, no adenopathy, no JVD, no carotid bruit, no c- spine tenderness, neck with full ROM CHEST: Symmetric, no tenderness at palpation LUNGS: Clear to auscultation bilaterally. No wheezing or crackles. CVS: Regular rate and rhythm, S1 and S2 present, no murmurs or gallops appreciated. ABDOMEN: Soft, non-tender. No signs of distention. No rebound no guarding, and no masses palpated. Bowel sounds are normal. EXTREMITIES: FROM in all major joints, no edema, no cyanosis or clubbing. NEURO: Alert and oriented x 3. No acute neurological deficits. Speech is normal and follows commands. SKIN: Dry and warm Triage Information Reviewed: Yes Vital Signs: Initial Vital Signs Temp 97.1 F 11/26/18 01:53 Pulse 94 11/26/18 01:53 Resp 16 11/26/18 01:53 BP 129/75 11/26/18 01:53 Pulse Ox 98 11/26/18 01:53 Vital Signs Reviewed: Yes Breast Pain Course/Dx - Course Course Of Treatment: Patient is a 23 y/o F who is 38 weeks who presents to ED with complaints of bilateral breast pain. Pain is characterized as a burning sensation. Sx onset at 27 weeks. However, pain was minimal at the time and the patient was able to alleviate Sx by using a warm cloth. Pain progressively worsened. She denies fever and discharge. Dr. Chen is OBGYN. Brigitte is . Patient was given Percocet 5/325, 1 tab. Patient was discharged to home and advised to follow up with OBGYN. - Diagnoses Provider Diagnoses: Breast pain Discharge - Sign-Out/Discharge Documenting (check all that apply): Patient Departure - discharge Patient Received Moderate/Deep Sedation with Procedure: No - Discharge Plan Condition: Stable Disposition: HOME Patient Education Materials: Breast Self Exam for Women (ED) Referrals: Julieta Doty MD [Primary Care Provider] - 3 Days Bob Chen MD [Medical Doctor] - 3 Days Additional Instructions: RETURN TO ED FOR ANY NEW OR WORSENING SYMPTOMS. FOLLOW UP WITH YOUR PRIMARY CARE PHYSICIAN AND OBGYN WITHIN THREE DAYS. - Attestation Statements Document Initiated by Scribe: Yes Documenting Scribe: ROBBY KELLY Provider For Whom Scribe is Documenting (Include Credential): CHARLES BROWN MD Scribe Attestation: ROBBY Yo, scribed for CHARLES BROWN MD on 11/26/18 at 0635. Status of Scribe Document: Ready
[2018-11-26] MEDS ORDERED: oxyCODONE/Acetamin 5/325 MG* TAB PO ONE (03:58)
[2018-11-26 04:23] VITALS: BP 133/73
== END 2018-11-26 05:10 | disposition home or self-care (01) ==
LOC: ED 01:36
DX: N64.4 Mastodynia (principal); O24.419 Gestational diabetes mellitus in pregnancy, unspecified control; Z3A.38 38 weeks gestation of pregnancy
CPT/HCPCS: 99282; A9270-GY

== ENCOUNTER 2018-11-26 15:58 | Emergency (ER) | payer OTHER ==
[2018-11-26 18:34] LABS: ABS Eosinophils 0.1 10^3/ul (0-0.6); ABS Lymphocytes 2.2 10^3/ul (1.0-4.8); ABS Monocytes 0.8 10^3/ul (0-0.8); Eosinophil % 1.2 %; Hematocrit 36 % (35-47); Hemoglobin 12.1 g/dL (12.0-16.0); Lymphocyte % 21.5 %; Mean Corpuscular HGB Conc 34 g/dL (31-36); Mean Corpuscular Hemoglobin 30 pg (27-31); Mean Corpuscular Volume 90 fL (80-97); Mean Platelet Volume 6.7 fL (7.4-10.4); Platelet Count 321 10^3/uL (150-450); Red Blood Count 3.98 10^6 /uL (3.70-4.87); Red Cell Distribution Width 14 % (10-15)
[2018-11-26 18:52] LABS: Albumin 3.2 g/dL (3.2-5.2); Albumin/Globulin Ratio 1.1 (1-3); BUN/Creatinine Ratio 13.9 (8-20); C Reactive Protein 10.04 mg/L (<8.01); Calcium 8.8 mg/dL (8.6-10.3); EGFR African American 120.4 (>60); EGFR Non-African American 99.5 (>60); Globulin 2.9 g/dL (2-4); Potassium 3.8 mmol/L (3.5-5.0); Total Bilirubin 0.3 mg/dL (0.2-1.0); Total Protein 6.1 g/dL (6.4-8.9)
--- NOTE | 2018-11-26 20:10 | UC ---
- HPI Summary HPI Summary: 26-year-old female at 38 weeks presents with right breast pain for past couple weeks. She states that started as bilateral pain and then moved to the right. States she has not felt any lumps. She states that there are certain areas that been more painful than others on right breast. area is sensitive to touch. She denies any fevers. She is concerned that it is infected. No nipple discharge. No chest pain. No shortness of breath. No bowel pain. No contractions. No loss of fluids or vaginal bleeding. - Allergy/Home Medications Allergies/Adverse Reactions: Allergies Allergy/AdvReac Type Severity Reaction Status Date / Time No Known Allergies Allergy Verified 11/26/18 01:57 PMH/Surg Hx/FS Hx/Imm Hx Previously Healthy: Yes Endocrine History: Other - no DM Respiratory History: Other Other Respiratory History: no asthma - Family History Known Family History: Negative: Blood Disorder - Social History Alcohol Use: Occasionally Alcohol Amount: prior to pregancy Substance Use Type: None Smoking Status (MU): Former Smoker Have You Smoked in the Last Year: No Review of Systems All Other Systems Reviewed And Are Negative: Yes Constitutional: Negative: Negative Skin: Positive: Other - right side breast pain Physical Exam Triage Information Reviewed: Yes Appearance: Well-Appearing Vital Signs: Initial Vital Signs Temp 96.8 F 11/26/18 16:06 Pulse 105 11/26/18 16:06 Resp 17 11/26/18 16:06 BP 140/88 11/26/18 16:06 Pulse Ox 97 11/26/18 16:06 Vital Signs Reviewed: Yes ENT Exam: Normal Respiratory: Positive: Lungs clear, Normal breath sounds Cardiovascular: Positive: RRR Abdomen Description: Positive: Other: - baby felt above umbilicus Musculoskeletal Exam: Normal Neurological Exam: Normal Psychological Exam: Normal Skin: Positive: Other - tenderness LUQ and LLQ of right breast. Negative: Rashes Breast Pain Course/Dx - Course Course Of Treatment: 23-year-old female at 38 weeks presents with right breast pain for past couple weeks. She states that started as bilateral pain and then moved to the right. States she has not felt any lumps. She states that there are certain areas that been more painful than others on right breast. area is sensitive to touch. She denies any fevers. She is concerned that it is infected. No nipple discharge. No chest pain. No shortness of breath. No bowel pain. No contractions. No loss of fluids or vaginal bleeding. on exam tenderness right breast austin at 2 and 6 position. ultrasound no abscess. wbc normal. told place heat or ice and take tyenlol. told follow up with ob. patient understand and agrees with plan. - Differential Diagnoses Differential Diagnosis/HQI/PQRI: Breast Abscess, Breast Mass, Cystic Myalgia - Diagnoses Provider Diagnoses: Breast pain during Discharge - Sign-Out/Discharge Documenting (check all that apply): Patient Departure Patient Received Moderate/Deep Sedation with Procedure: No - Discharge Plan Condition: Good Disposition: HOME Referrals: Julieta Doty MD [Primary Care Provider] - Additional Instructions: follow up with ob Apply heat take tyenlol as needed for pain Return to ED if develop any new or worsening symptoms - Billing Disposition and Condition Condition: GOOD Disposition: Home
[2018-11-26 21:04] VITALS: BP 112/61
== END 2018-11-26 21:03 | disposition home or self-care (01) ==
LOC: ED 15:58
DX: O26.893 Other specified pregnancy related conditions, third trimester (principal); N64.4 Mastodynia; Z3A.38 38 weeks gestation of pregnancy; Z87.891 Personal history of nicotine dependence
CPT/HCPCS: 36415; 80053; 85025; 86140; 99282

== ENCOUNTER 2019-02-07 00:36 | Emergency (ER) | payer OTHER ==
--- NOTE | 2019-02-07 03:24 | ED ---
Headache - HPI Summary HPI Summary: Pt is a 23 y/o F presenting to the ED with a chief complaint of a headache. She states it began in her R jaw and then spread diffusely over the R side of her head over the course of three days. She reports photophobia, dizziness, pressure in her ears, diarrhea every time she eats, and tingling in her bilateral LE. She denies fever, weakness, vomiting, blurry vision, or diplopia. She notes that she has a wisdom tooth that needs to be pulled/broke, but the pain from the tooth is usually not occurring at the same time as her headache. - History Of Current Complaint Chief Complaint: EDHeadache Stated Complaint: HEADACHE PER PT Time Seen by Provider: 02/07/19 02:38 Hx Obtained From: Patient Onset/Duration: Gradual Onset, Started days ago, Still Present Initially Headache Was: Moderate Currently Pain Is: Moderate Timing: Constant, Days Character: Typical Headache Location of Headache: Diffuse - R side Aggravating Factor: Bright Lights Allevating Factors: Nothing Associated Signs And Symptoms: Dizziness - Allergies/Home Medications Allergies/Adverse Reactions: Allergies Allergy/AdvReac Type Severity Reaction Status Date / Time No Known Allergies Allergy Verified 02/07/19 00:46 PMH/Surg Hx/FS Hx/Imm Hx Previously Healthy: Yes Endocrine/Hematology History: Denies: Hx Diabetes Cardiovascular History: Denies: Hx Hypertension Respiratory History: Reports: Hx Asthma GI History: Reports: Other GI Disorders - neg: colitis Denies: Hx Crohn's Disease Psychiatric History: Reports: Hx Anxiety, Hx Depression Infectious Disease History: No Infectious Disease History: Denies: Traveled Outside the [place] in Last 30 Days - Family History Known Family History: Negative: Blood Disorder - Social History Alcohol Use: Occasionally Alcohol Amount: prior to Hx Substance Use: No Substance Use Type: Reports: None Hx Tobacco Use: No Smoking Status (MU): Light Every Day Tobacco Smoker Have You Smoked in the Last Year: No Review of Systems Negative: Fever Positive: Photophobia. Negative: Blurred Vision, Diplopia Positive: Dental Pain, Other - ear pressure Positive: Diarrhea. Negative: Vomiting Positive: Headache, Paresthesia. Negative: Weakness All Other Systems Reviewed And Are Negative: Yes Physical Exam - Summary Physical Exam Summary: Constitutional: Well-developed, Well-nourished, Alert. (-) Distressed Skin: Warm, Dry HENT: Normocephalic; Atraumatic Eyes: Conjunctiva normal Neck: Musculoskeletal ROM normal neck. (-) JVD, (-) Stridor, (-) Tracheal deviation Cardio: Rhythm regular, rate normal, Heart sounds normal; Intact distal pulses; The pedal pulses are 2+ and symmetric. Radial pulses are 2+ and symmetric. (-) Murmur Pulmonary/Chest wall: Effort normal. (-) Respiratory distress, (-) Wheezes, (-) Rales Abd: Soft. (-) Tenderness, (-) Distension, (-) Guarding, (-) Rebound Musculoskeletal: (-) Edema Lymph: (-) Cervical adenopathy Neuro: Alert, Oriented x3, Strength normal, Cranial nerves II-XII are grossly intact. (-) Dysmetria, (-) Nystagmus, (-) Ataxia by finger to nose testing, NIH score 1 d/t decreased sensation on R side of body compared to L. Psych: Mood and affect Normal Triage Information Reviewed: Yes Vital Signs On Initial Exam: Initial Vitals Temp Pulse Resp BP Pulse Ox 96.8 F 80 16 129/90 97 02/07/19 00:40 02/07/19 00:40 02/07/19 00:40 02/07/19 00:40 02/07/19 00:40 Vital Signs Reviewed: Yes - Heron Coma Scale Best Eye Response: 4 - Spontaneous Best Motor Response: 6 - Obeys Commands Best Verbal Response: 5 - Oriented Coma Scale Total: 15 Procedures - Sedation Patient Received Moderate/Deep Sedation with Procedure: No Diagnostics - Vital Signs Vital Signs Temp Pulse Resp BP Pulse Ox 02/07/19 00:40 96.8 F 80 16 129/90 97 - Laboratory Result Diagrams: 02/07/19 03:47 02/07/19 03:47 Lab Statement: Any lab studies that have been ordered have been reviewed, and results considered in the medical decision making process. - CT Brain CT CT Interpretation Completed By: Radiologist Summary of CT Findings: 1. Mild left maxillary sinus disease. 2. Otherwise negative noncontrast head CT. ED physician has reviewed this report. National Institutes Of Health - NIH Scale Level of Consciousness: Alert/Keenly Responsive Ask Patient the Month and His/Her Age: Both Correct Ask Pt to Open/Close Eyes and Aeronautical Research Engineer/Release Non-Paretic Hand: Both Correctly Best Gaze (Only Horizontal Eye Movement): Normal Visual Field Testing: No Visual Loss Facial Paresis-Pt to Smile & Close Eyes or Grimace Symmetry: Normal/Symmetrical Motor Function - Right Arm: No Drift-Holds 10 Seconds Motor Function - Left Arm: No Drift-Holds 10 Seconds Motor Function - Right Leg: No Drift-Holds 10 Seconds Motor Function - Left Leg: No Drift-Holds 10 Seconds Limb Ataxia-Must be out of Proportion to Weakness Present: Absent Sensory (Use Pinprick to Test Arms/Legs/Trunk/Face): Pinprick Less on Affected Best Language (Describe Picture, Name Items): No Aphasia Dysarthria (Read Several Words): Normal Extinction and Inattention: No Abnormality Total Score: 1 Re-Evaluation - Re-Evaluation 1st re-eval Re-Evaluation Time: 04:16 Change: Improved Comment: Pt states she's feeling slightly better. The unilateral numbness has subsided but it is still somewhat present. 2nd re-eval Re-Evaluation Time: 04:51 Change: Improved Comment: Pt is improved, and states that she would like to go home. She is stable for discharge. Headache Course/Dx - Course Course Of Treatment: Patient is here with a headache for the past couple of days. Patient has a normal neurologic exam inside of decreased sensation on the right side. Patient has no objective neurologic findings. Given patient's decreased sensation, CT head was performed which was negative. Patient had a CBC, CMP, test which were all negative. Patient is given a headache cocktail with resolution of her headache and her numbness. Patient is likely having an atypical migraine variant and is instructed follow-up with her PCP in one to 3 days. - Diagnoses Provider Diagnoses: Headache Discharge ED - Sign-Out/Discharge Documenting (check all that apply): Patient Departure - Discharge Plan Condition: Stable Disposition: HOME Patient Education Materials: General Headache (ED) Referrals: Julieta Doty MD [Primary Care Provider] - Additional Instructions: Please follow up with your primary care provider within the next 1-3 days. Come back to the emergency department with any new or worsening symptoms, including visual changes, difficulty speaking, or one-sided weakness. - Billing Disposition and Condition Condition: STABLE Disposition: Home - Attestation Statements Document Initiated by Scribe: Yes Documenting Scribe: Martha Adamson Provider For Whom Mushtaqibe is Documenting (Include Credential): Da King MD. Scribe Attestation: IMartha, scribed for Da King MD. on 02/07/19 at 0458. Scribe Documentation Reviewed: Yes Provider Attestation: The documentation as recorded by the scribeMartha accurately reflects the service I personally performed and the decisions made by me, Da King MD. Status of Scribe Document: Viewed
[2019-02-07] MEDS: NS 0.9% 1000 ML** 1,000 ML IV ONE (03:53)
[2019-02-07] MEDS: PROCHLORPERAZINE INJ 5 MG/ML 2 ML VIAL IV ONE (03:54)
[2019-02-07] MEDS: Ketorolac INJ* 30 MG/ML 1 ML VIAL IV ONE (03:54)
[2019-02-07] MEDS: diPHENhydraMINE IV* 50 MG/ML 1 ml VIAL (BENADRYL) IV ONE (03:54)
[2019-02-07 03:57] LABS: ABS Basophils 0.1 10^3/ul (0-0.2); ABS Eosinophils 0.4 10^3/ul (0-0.6); ABS Lymphocytes 2.9 10^3/ul (1.0-4.8); ABS Monocytes 0.5 10^3/ul (0-0.8); ABS Neutrophils 3.5 10^3/ul (1.5-7.7); Eosinophil % 4.9 %; Hematocrit 39 % (35-47); Hemoglobin 13.3 g/dL (12.0-16.0); Lymphocyte % 39.5 %; Mean Corpuscular HGB Conc 34 g/dL (31-36); Mean Corpuscular Hemoglobin 30 pg (27-31); Mean Corpuscular Volume 90 fL (80-97); Mean Platelet Volume 6.6 fL (7.4-10.4); Platelet Count 359 10^3/uL (150-450); Red Blood Count 4.37 10^6 /uL (3.70-4.87); Red Cell Distribution Width 15 % (10-15); White Blood Count 7.3 10^3/uL (3.5-10.8)
[2019-02-07 04:15] LABS: ALT 17 U/L (7-52); AST 16 U/L (13-39); Albumin 3.9 g/dL (3.2-5.2); Albumin/Globulin Ratio 1.4 (1-3); Alkaline Phosphatase 76 U/L (34-104); Anion Gap 5 mmol/L (2-11); BUN/Creatinine Ratio 17.2 (8-20); Blood Urea Nitrogen 15 mg/dL (6-24); CO2 Carbon Dioxide 26 mmol/L (22-32); Calcium 8.8 mg/dL (8.6-10.3); Chloride 106 mmol/L (101-111); EGFR African American 96.8 (>60); Globulin 2.8 g/dL (2-4); Glucose 102 mg/dL (70-100); Potassium 3.9 mmol/L (3.5-5.0); Sodium 137 mmol/L (135-145); Total Protein 6.7 g/dL (6.4-8.9)
[2019-02-07 04:22] LABS: HCG Pregnancy < 0.60 mIU/mL
[2019-02-07 05:03] VITALS: BP 128/70
== END 2019-02-07 05:00 | disposition home or self-care (01) ==
LOC: ED 00:36
DX: R51 Headache (principal); J32.0 Chronic maxillary sinusitis; J45.909 Unspecified asthma, uncomplicated; F41.9 Anxiety disorder, unspecified; F17.200 Nicotine dependence, unspecified, uncomplicated; Z79.899 Other long term (current) drug therapy
CPT/HCPCS: 36415; 70450; 80053; 84702; 85025; 96361; 96374; 96375; 99283; J0780; J1200; J1885